=== PATIENT | female | born 1965 | race Caucasian/White ===

== ENCOUNTER 2023-11-15 13:11 | Emergency (ER) | payer MEDICAID ==
[~2023-11-15] VITALS: Ht 165.1 cm; Wt 75.0 kg
[2023-11-15] MEDS: dexamethasone sod phosphate 10mg/ml inj IM STA (14:44)
[2023-11-15] MEDS ORDERED: PRED20TA PO (14:50)
[2023-11-15 15:01] VITALS: BP 99/73; PULSE 80; RESP 16; TEMP 97.9; O2SAT 97
== END 2023-11-15 15:03 | disposition home or self-care (01) ==
LOC: ER 13:12
DX: M54.17 Radiculopathy, lumbosacral region (principal); M54.32 Sciatica, left side; M51.27 Other intervertebral disc displacement, lumbosacral region; Z91.030 Bee allergy status; Z79.899 Other long term (current) drug therapy
CPT/HCPCS: 96372; 99283; J1100

== ENCOUNTER 2023-12-01 14:31 | Outpatient (CLI) | payer MEDICAID | END 2023-12-01 23:59 | disposition home or self-care (01) | LOC: MRI 14:31 | PROVIDERS: ATTEND Physician Assistant | DX: M47.22 Other spondylosis with radiculopathy, cervical region (principal); M50.11 Cervical disc disorder with radiculopathy, high cervical region; M48.02 Spinal stenosis, cervical region; M25.78 Osteophyte, vertebrae; M62.838 Other muscle spasm; G95.89 Other specified diseases of spinal cord; R29.898 Other symptoms and signs involving the musculoskeletal system | CPT/HCPCS: 72141 ==

== ENCOUNTER 2024-05-11 16:48 | Emergency (ER) | payer MEDICAID ==
[~2024-05-11] VITALS: Ht 165.1 cm; Wt 70.7 kg
[2024-05-11] MEDS ORDERED: METH4TAB81 PO (18:30)
[2024-05-11] MEDS: dexamethasone sod phosphate 10mg/ml inj IM STA (18:40)
[2024-05-11 18:46] VITALS: BP 128/80; PULSE 96; RESP 20; TEMP 98.6; O2SAT 97
== END 2024-05-11 18:48 | disposition home or self-care (01) ==
LOC: ER 16:49
DX: S39.012A Strain of muscle, fascia and tendon of lower back, initial encounter (principal); Z88.1 Allergy status to other antibiotic agents; Z91.030 Bee allergy status; Z88.8 Allergy status to other drugs, medicaments and biological substances; X50.0XXA Overexertion from strenuous movement or load, initial encounter; Y93.89 Activity, other specified; Y92.89 Other specified places as the place of occurrence of the external cause; Y99.8 Other external cause status
CPT/HCPCS: 96372; 99283; J1100